=== PATIENT | female | born 1990 ===

== ENCOUNTER 2016-11-13 22:06 | Emergency (ER) | payer SELFPAY ==
[2016-11-13 22:16] VITALS: BP 113/77; PULSE 74; TEMP 99; BMI 24.8
[2016-11-13] MEDS ORDERED: TOBRAMYCIN 0.3% OPHTH SOLN 5 ML BOTTLE OS ONE (22:22)
[2016-11-13] MEDS ORDERED: TOBRAMYCIN 0.3% OPHTH SOLN 5 ML BOTTLE ONE (22:24)
--- NOTE | 2016-11-13 22:28 | PDOC ---
History of Present Illness - General Chief Complaint: Pain Stated Complaint: PINK EYE Time Seen by Provider: 11/13/16 22:10 - History of Present Illness Initial Comments: This otherwise healthy 26-year-old woman presents with a one-day history of redness and irritation of the left eye. Approximately 4 AM this morning, she first noticed inflammation/redness/itching/pain in the interior portion of her left eye. She states that she has mild inflammation in the inner portion of both eyes. Today, symptoms have become more pronounced. She denies any trauma to the left eye either now or previously. She has not had any crusting or tearing of the eye. She has not seen an eye doctor in the past and denies previous eye issues. She has not had any recent upper respiratory symptoms/ fever/sore throat. No known exposure to conjunctivitis Patient is not taking any medications No known ALLERGIES Patient is primarily [place]-speaking and interpretation is through cell phone application ([employer]) Past History - Past Medical History Allergies/Adverse Reactions: Allergies Allergy/AdvReac Type Severity Reaction Status Date / Time No Known Allergies Allergy Verified 11/13/16 22:08 Home Medications: Ambulatory Orders NK [No Known Home Medication] 11/13/16 Other medical history: DENIES - Psycho/Social/Smoking Cessation Hx Anxiety: No Suicidal Ideation: No Smoking History: Current every day smoker Have you smoked in the past 12 months: Yes Number of Cigarettes Smoked Daily: 3 Information on smoking cessation initiated: No Hx Alcohol Use: Yes (SOCIAL) Drug/Substance Use Hx: No Substance Use Type: None Review of Systems - Review of Systems Able to Perform ROS?: Yes Comments:: 12 point review of systems is negative except for what is noted in the history of present illness *Physical Exam - Vital Signs Last Vital Signs Temp Pulse Resp BP Pulse Ox 99 F 74 18 113/77 99 11/13/16 22:13 11/13/16 22:13 11/13/16 22:13 11/13/16 22:13 11/13/16 22:13 - Physical Exam Comments: GENERAL: Adult female, alert and oriented 3 in no acute distress HEAD: Normal with no signs of trauma. EYES: PERRLA, EOMI, sclera anicteric, Left eyeerythematous wedge-shaped area of the nasal conjunctiva with whitish material extending a few millimeters onto the cornea Cornea is clear; no other conjunctival erythema/edema /discharge evident Pupil is round, 3 mm and briskly reactive Right eyenon-inflamed/non erythematous wedge-shaped area of whitish material nasal conjunctiva Cornea is clear; pupil is round, 3 mm and briskly reactive ENT: Ears normal, nares patent, oropharynx clear without exudates. Moist mucous membranes. EXTREMITIES: Normal range of motion, no edema. No clubbing or cyanosis. No erythema, or tenderness. NEUROLOGICAL: Cranial nerves II through XII grossly intact. Normal speech. No focal neurological deficits. MUSCULOSKELETAL: Back non-tender to palpation, no CVA tenderness SKIN: Warm, Dry, normal turgor, no rashes or lesions noted. Medical Decision Making - Medical Decision Making This otherwise healthy 26-year-old woman presents with inflammation of the inner portion of the conjunctiva of her left eye. She has no other medical complaints/no previous medical problems and is on no medications. Examination is consistent with bilateral pterygium with inflammation of the left pterygium No evidence of injury to the eye; although there is no crusting or purulent discharge, because of the localized inflammation of the left sided pterygium, will administer tobramycin ophthalmic solution: One drop now and prescription for one drop 3 times a day. It was explained to the patient that she needs to follow-up with an slot floorperson within the next 48 hours and referral information for Dr. reno was provided for her. She should return to the emergency room if symptoms worsen. *DC/Admit/Observation/Transfer Diagnosis at time of Disposition: Pterygium of left eye Conjunctivitis Qualifiers: Conjunctivitis type: pingueculitis Laterality: left Qualified Code(s): H10.812 - Pingueculitis, left eye - Discharge Dispostion Disposition: HOME Condition at time of disposition: Stable - Referrals Referrals: Germán Tidwell MD [Staff Physician] - - Patient Instructions Printed Discharge Instructions: Pterygium Additional Instructions: Tobramycin eye solution one drop in the left eye 3 times a day Can also use artificial tears/eye lubricant as needed in left eye Call Dr. Tidwell/Dr. Ibarra office(eye doctors) in the morning to make a follow-up appointment within 2 days Return to ER if you have worsening redness/pain/change in vision Print Language: WOLOF
== END 2016-11-13 22:31 | disposition home or self-care (01) ==
LOC: FER 22:06
DX: H11.002 Unspecified pterygium of left eye (principal); H10 Conjunctivitis; F17.210 Nicotine dependence, cigarettes, uncomplicated
CPT/HCPCS: 99281-25